=== PATIENT | female | born 1975 | race Caucasian/White ===

== ENCOUNTER → 2021-05-01 | Outpatient (CLI) | payer OTHER ==
[2021-05-01 15:48] LABS: HEMOGLOBIN 10.8 gm/dl (12.3-15.3); RED BLOOD COUNT 3.62 M/UL (4.00-5.10); WHITE BLOOD COUNT 8.2 K/UL (4.5-11.0)
[2021-05-01 16:20] LABS: BUN/CREATININE RATIO 10 (0-10)
[2021-05-02 06:11] LABS: HIV AB/P24 AG SCREEN Non Reactive (Non Reactive)
[2021-05-02 08:15] LABS: VITAMIN D, 25-HYDROXY 23.7 ng/mL (30.0-100.0)
[2021-05-02 11:15] LABS: HBSAG SCREEN Negative (Negative); HEP A AB, IGM Negative (Negative); HEP B CORE AB, IGM Negative (Negative); HEP C VIRUS AB >11.0 (0.0-0.9)
[2021-05-02 16:13] LABS: TREPONEMA PALLIDUM ANTIBODIES Reactive (Non Reactive)
[2021-05-03 13:10] LABS: CHLAMYDIA BY NAA Negative (Negative); GONOCOCCUS BY NAA Negative (Negative); TRICH VAG BY NAA Negative (Negative)
== END ==
LOC: LAB 13:28
PROVIDERS: Registered Nurse
DX: Z11.4 Encounter for screening for human immunodeficiency virus [HIV] (principal); Z13.228 Encounter for screening for other metabolic disorders; Z11.59 Encounter for screening for other viral diseases; E78.00 Pure hypercholesterolemia, unspecified; E55.9 Vitamin D deficiency, unspecified; R94.6 Abnormal results of thyroid function studies; D51.9 Vitamin B12 deficiency anemia, unspecified
CPT/HCPCS: 36415; 80053; 80061; 80074; 82607; 84443; 85027; 86780; 87389; 87661